=== PATIENT | female | born 1945 | race Caucasian/White ===

== ENCOUNTER 2017-09-17 09:39 | Outpatient (CLI) | payer MEDICARE | END 2017-09-17 09:40 | disposition home or self-care (01) | LOC: BICMAMMO 09:39 | PROVIDERS: ATTEND Internal Medicine | DX: Z78.0 Asymptomatic menopausal state (principal); M85.80 Other specified disorders of bone density and structure, unspecified site | CPT/HCPCS: 77080 ==

== ENCOUNTER 2017-09-22 07:53 | Outpatient (CLI) | payer MEDICARE ==
[2017-09-22] MEDS ORDERED: Gadobenate Dimeglumine 529 MG/1 ML (20ML VIAL) ONE (15:11)
== END 2017-09-22 07:54 | disposition home or self-care (01) ==
LOC: BICMRI 07:53
PROVIDERS: ATTEND Internal Medicine Gastroenterology
DX: Z12.11 Encounter for screening for malignant neoplasm of colon (principal); K86.89 Other specified diseases of pancreas; K76.89 Other specified diseases of liver; Z90.5 Acquired absence of kidney; K86.2 Cyst of pancreas
CPT/HCPCS: 74183; 82565; A9579

== ENCOUNTER 2017-12-18 09:49 | Outpatient (CLI) | payer MEDICARE | END 2017-12-18 09:50 | disposition home or self-care (01) | LOC: BICMAMMO 09:49 | PROVIDERS: ATTEND Internal Medicine | DX: Z12.31 Encounter for screening mammogram for malignant neoplasm of breast (principal) | CPT/HCPCS: 77063; 77066; 77067; G0279 ==

== ENCOUNTER 2019-02-16 14:21 | Outpatient (CLI) | payer MEDICARE, OTHER ==
--- NOTE | 2019-02-16 15:49 | MRI ---
Exam: Brain MRI without contrast HISTORY: Headache. Bilateral arm numbness. COMPARISON: None FINDINGS: Calvarial marrow signal intensity: Appropriate T1 signal Gradient echo sequence: No hemorrhage Brain parenchyma: No mass, mass effect or midline shift. Brain volume, age-appropriate. Cortical greco-white matter differentiation: Preserved Restricted diffusion: Central arterial flow voids are maintained. Absent restricted diffusion White matter signal intensities:Scattered T2 and FLAIR white matter hyperintensities which are nonspe cific but may be due to chronic small vessel ischemic changes. Sinuses: Right frontal sinus opacification. There is mucosal thickening with near complete opacificat ion the right sphenoid sinus. Adequate mastoid air cell aeration IMPRESSION: 1. No acute intracranial process. 2. Right sinus disease. 3. Absent restricted diffusion. No acute infarct
--- NOTE | 2019-02-16 16:16 | MRI ---
MRI CERVICAL SPINE WITHOUT CONTRAST: 02/16/19 INDICATIONS: Neck pain. Comparison made to MRI cervical spine 08/15/13. FINDINGS: Degenerative changes at all levels again noted with loss of disc space. The posterolisthesis at C3-4 is again seen and was present in 2014. Slight anterolisthesis at C4-5 is also again noted and was pre sent previously. The cervical vertebrae maintain normal signal and maintain height. At C2-3, posterior disc bulge and spondylosis efface the anterior subarachnoid space. At C3-4, loss of disc space or posterolisthesis is noted as described above. Posterior disc bulge an d spondylosis is more prominent at this level today and there is increasing central canal stenosis at this level when compared to 2014. Mild cord compression. At C4-5, mild anterolisthesis with posterior disc bulge and spondylosis. This effaces the anterior pereira barachnoid space but does not compress or impinge on the cord. Foramina appear open. At C5-6, slight anterolisthesis, also similar to the prior exam. Posterior disc bulge and spondylosis is similar to the prior study. These changes efface the anterior subarachnoid space but do not impin ge on the cord. Mild foraminal encroachment due to uncinate hypertrophy. At C6-7, posterior disc bulge and spondylosis is similar to the prior study. These changes indent the thecal sac and efface the anterior subarachnoid space. No cord impingement or significant central ca nal stenosis. Evidence of right foraminal stenosis due to facet and uncinate hypertrophy. At C7-T1, disc bulge and spondylosis mildly flatten the thecal sac. Anterior subarachnoid space is pr eserved. Left foraminal encroachment due to uncinate hypertrophy. 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 See description above. POS: OFF
--- NOTE | 2019-02-16 16:31 | MRI ---
MRI OF THE LUMBAR SPINE WITHOUT CONTRAST: 02/16/19 INDICATIONS: Low back pain, headache. Comparison made to MRI lumbar spine dated 07/28/14. FINDINGS: There are postoperative changes noted with pedicle screws at L4-5 and interbody fusion at this level. These postoperative changes were present on the prior exam. Lumbar vertebrae maintain height and alignment. The other disc spaces are preserved. Mild degenerativ e osteophytes are present. At T11-T12, there is an asymmetric disc protrusion paracentrally on the left which indents the anteri or thecal sac on the left and produces mild left foraminal encroachment. There appears to be a focal left paracentral protrusion with slight inferior extension. The protruded disc on the axial images me asures 6 mm AP dimension just inferior to the disc space. T12-L1, no significant abnormality. AT L1-2, mild disc bulge. No central canal or foraminal stenosis. At L2-3, there is a slight posterolisthesis with broad based disc bulge which is more prominent than on the prior study. This flattens the thecal sac. There is facet and ligamentous hypertrophy present . These changes result in mild central canal stenosis. At L3-4, there is focal protrusion centrally and slightly to the right which compresses the anterior thecal sac. This has occurred since the prior study. The focal protrusion measures 5 mm AP dimension in the axial plane. Facet and ligamentous hypertrophy resulting in moderate central canal stenosis. Fusion changes at L4-5. At L5-S1, loss of disc space. Broad based disc bulge is similar to the prior exam. Mild central canal stenosis. There is bilateral foraminal stenosis at this level. IMPRESSION: 1. Focal disc protrusion to the left at T11-T12. 2. Broad based bulge at L2-3 producing mild central canal stenosis as described above. 3. Diffuse bulge and small focal protrusion centrally and to the right at L3-4 as described abov e. 4. Postop changes at L4-5 as described. 5. Disc bulge at L5-S1 is stable from prior exam. There is bilateral foraminal stenosis at this level. POS: OFF
--- NOTE | 2019-02-16 16:41 | RAD ---
CERVICAL SPINE: 02/16/19 HISTORY: Neck pain. FINDINGS/IMPRESSION: Posterolisthesis at C2-3 and C3-4. Anterolisthesis at C4-5 and C5-6. Degenerative disc narrowing at C 5-6 and C6-7 with spurring. There is slight reduction in the anterolisthesis at C4-5 with extension. See MRI cervical spine for further characterization. POS: OFF
== END 2019-02-16 14:22 | disposition home or self-care (01) ==
LOC: MRI 14:21
DX: M54.2 Cervicalgia (principal); M99.4 Connective tissue stenosis of neural canal; R51 Headache; M43.12 Spondylolisthesis, cervical region; M48.02 Spinal stenosis, cervical region; M51.24 Other intervertebral disc displacement, thoracic region; M51.87 Other intervertebral disc disorders, lumbosacral region; M48.07 Spinal stenosis, lumbosacral region; J32.9 Chronic sinusitis, unspecified; Z98.890 Other specified postprocedural states
CPT/HCPCS: 70551; 72050; 72141; 72148

== ENCOUNTER 2019-06-16 13:00 | Outpatient (CLI) | payer MEDICARE, OTHER ==
--- NOTE | 2019-06-16 13:26 | RAD ---
EXAM: Cervical spine radiographs, 3 views PROVIDED CLINICAL HISTORY: Neck pain COMPARISON: 02/16/2019 FINDINGS: Interval placement of bilateral articular pillar screws and associated vertical interconnecting rods with bone augmentation material adjacent to the posterior elements from C3 through C6. No evidence for hardware loosening or migration. There is persistent but less conspicuous anterolisthesis of C4 o n C5 and C5 on C6. Disc space height loss and endplate degenerative change at multiple levels redemonstrated. No prevertebral soft tissue swelling apparent. The visualized lung apices appear frank r. IMPRESSION: Interval postoperative change.
== END 2019-06-16 13:01 | disposition home or self-care (01) ==
LOC: BICRAD 13:00
PROVIDERS: ATTEND Neurological Surgery
DX: M47.812 Spondylosis without myelopathy or radiculopathy, cervical region (principal); Z98.890 Other specified postprocedural states
CPT/HCPCS: 72040

== ENCOUNTER 2019-08-02 09:07 | Outpatient (CLI) | payer MEDICARE, OTHER ==
--- NOTE | 2019-08-02 11:08 | RAD ---
CERVICAL SPINE 3 VIEWS: Date: 08/02/2019 HISTORY: Spondylosis. Neck pain. Prior cervical surgery. COMPARISON: Films of 06/16/2019. FINDINGS: Postoperative changes are again noted. Posterior pedicle screws and rods are again seen at the C3, C4 , C5, and C6 levels. There is mild anterolisthesis at the c4-5 level, stable from the prior exam. The re is anterolisthesis at C5-6, which also appears stable from prior exam. There is loss of disc space at all levels with hypertrophic spurring. The hardware appears unchanged with no evidence of looseni ng. IMPRESSION: Stable postoperative and degenerative changes of cervical spine. POS: [facility]
== END 2019-08-02 09:08 | disposition home or self-care (01) ==
LOC: BICRAD 09:07
PROVIDERS: ATTEND Neurological Surgery
DX: M47.812 Spondylosis without myelopathy or radiculopathy, cervical region (principal); Z98.890 Other specified postprocedural states
CPT/HCPCS: 72040

== ENCOUNTER 2019-11-23 11:18 | Outpatient (CLI) | payer MEDICARE, OTHER ==
--- NOTE | 2019-11-23 11:44 | RAD ---
RADIOGRAPH CERVICAL SPINE 4 VIEWS: DATE: 11/23/2019 HISTORY: 73-year-old female with cervicalgia. COMPARISON: 08/02/2019 FINDINGS: Bilateral posterior element screws with vertical interlocking rods, and laminectomy defects, at C3, C 4, C5, and C6. Vertebral body heights are maintained. No prevertebral soft tissue swelling. Multilevel high-grade bilateral facet DJD throughout all or almost all levels. C1-2: Mild to moderate DJD at bilateral atlantoaxial joints. C2-3: Moderate disc space narrowing. Retrolisthesis of C2 on C3. C3-4: Moderate disc space narrowing. Retrolisthesis of C3 on C4. C4-5: Mild to moderate disc space narrowing. Grade 1 anterolisthesis of C4 on C5. C5-6: Moderate disc space narrowing. Grade 1 anterolisthesis of C5 on C6. C6-7: Severe disc space narrowing. Prominent endplate sclerosis. Moderately large anterior endplate o steophytes protruding into prevertebral space. Smaller endplate osteophytes encroaching upon anterior aspect of spinal canal. No obvious interval change is detected. IMPRESSION: 1) cervical spondylosis with multilevel degenerative disc disease, moderate in severe; and multilevel bilateral severe facet osteoarthrosis. 2) status post laminectomies and posterior element fusion hardware from C3 through C6. 3) level chronic subluxations. 4) no interval change detected.
== END 2019-11-23 11:19 | disposition home or self-care (01) ==
LOC: BICRAD 11:18
PROVIDERS: ATTEND Neurological Surgery
DX: M47.22 Other spondylosis with radiculopathy, cervical region (principal); M50.10 Cervical disc disorder with radiculopathy, unspecified cervical region; Z98.1 Arthrodesis status
CPT/HCPCS: 72040

== ENCOUNTER 2020-05-03 11:04 | Outpatient (CLI) | payer MEDICARE, OTHER ==
--- NOTE | 2020-05-03 11:30 | RAD ---
Exam: 3 views cervical spine COMPARISON: 11/23/2019 FINDINGS: On the open-mouth projection, lateral masses of C1 and C2 articulate appropriately. Intact odontoid p rocess. In the AP projection, there are bilateral transpedicular screws at C3, C5, and C6. There is a solitar y right-sided screw at C4. No perihardware lucency. Stable grade 1 anterolisthesis of C4 upon C5 and C5 upon C6. Stable grade 1 retrolisthesis of C2 upon C3 and C3 upon C4. Stable loss of disc space height, endplate sclerosis and osteophyte formation at C6-C7. Cervical spine vertebral body heights are maintained. No fracture. No significant prevertebral soft t issue swelling. Predental space is normal. There is evidence of posterior decompressive laminectomies at C4, C5, C6 and C7. There is associated bone graft material. IMPRESSION: Essentially stable postsurgical changes/fusion changes. Transcribed Date/Time: 05/03/2020 11:33 AM
== END 2020-05-03 11:05 | disposition home or self-care (01) ==
LOC: BICRAD 11:04
PROVIDERS: ATTEND Neurological Surgery
DX: M47.22 Other spondylosis with radiculopathy, cervical region (principal); Z98.890 Other specified postprocedural states
CPT/HCPCS: 72040

== ENCOUNTER 2020-05-23 11:01 | Outpatient (CLI) | payer MEDICARE, OTHER ==
[2020-05-23] MEDS ORDERED: Iopamidol 370 76% 100 ML VIAL ONE (11:39)
--- NOTE | 2020-05-23 11:40 | CT ---
EXAM: CT ABDOMEN AND PELVIS HISTORY: Worsening constipation COMPARISON: None. Procedure: Multiple contiguous axial images were obtained and a CT of the abdomen and pelvis with IV contrast. C oronal reformats were performed. FINDINGS: Lower Chest: Scarring and atelectasis in the middle lobe and lingula as well as the left lower lobe. Vessels: Normal caliber aorta. Heart: Upper normal heart size, without significant pericardial fluid Abdomen: Portal vein:Patent Gallbladder: Contracted, likely due to a nonfasting state Liver: Subcentimeter hypodensities are too small to characterize but are statistically favored to be cysts. Pancreas: within normal limits. Spleen: within normal limits. Adrenals: within normal limits. Kidneys: Absent left kidney. Appropriate enhancement of the right kidney without evidence of obstruct slime uropathy. Peritoneum: Decreased visceral fat limits evaluation for inflammatory change. No definite free air or free fluid. Bowel: There is oral contrast. Gastric mucosa and small bowel loops have an overall normal appearance . 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 Normal-appearing ileocecal junction. Normal caliber air-filled appendix. There is sc attered fecal material and contrast in the cecum, ascending colon and proximal transverse colon. There does appear to be a caliber change as well as mucosal prominence starting in the mid portion of the transverse colon extending to the descending colon. Mucosal prominence is presumed to be due to inadequate distention with oral contrast. Sigmoid colon and rectum do not demonstrate any obvious abnormality. Overall there is a moderate amount of fecal material predominantly in the right hemicolon. There is evidence of previous bariatric surgical change. Mesentery and Retroperitoneum: No enlarged mesenteric or retroperitoneal lymph nodes. Abdominal Wall: within normal limits. Pelvis: Reproductive Organs: Reproductive organs are unremarkable. Pelvis: No mass, lymphadenopathy, free air or free fluid. Bladder: within normal limits. Bones: No lytic or blastic lesions. Previous lumbar fusion is identified. Vacuum disc phenomenon at t he lumbosacral junction IMPRESSION: No evidence of constipation. There is a moderate amount fecal material in the right hemicolon of unce rtain significance. There is abrupt caliber change in the transverse colon, extending to the left hemicolon. Findings are presumed to be due to inadequate distention. As a conservative measure, colon oscopy can be performed. Transcribed Date/Time: 05/23/2020 12:13 PM
== END 2020-05-23 11:02 | disposition home or self-care (01) ==
LOC: BICCT 11:01
PROVIDERS: ATTEND Internal Medicine Gastroenterology
DX: K86.89 Other specified diseases of pancreas (principal); K21.9 Gastro-esophageal reflux disease without esophagitis; K58.9 Irritable bowel syndrome, unspecified
CPT/HCPCS: 74177; 82565; Q9967

== ENCOUNTER 2021-01-16 10:40 | Outpatient (CLI) | payer MEDICARE, OTHER | END 2021-01-16 10:41 | disposition home or self-care (01) | LOC: BICMAMMO 10:40 | PROVIDERS: ATTEND Internal Medicine | DX: Z12.31 Encounter for screening mammogram for malignant neoplasm of breast (principal) | CPT/HCPCS: 77063; 77067 ==

== ENCOUNTER 2021-08-28 07:07 | Day surgery (SDC) | payer MEDICARE, OTHER ==
[2021-08-27 11:32] VITALS: BMI 26.4
[2021-08-28 07:30] LABS: #Basophils 0.1 thou/uL (0.0-0.2); #Eosinphils 0.4 thou/uL (0.0-0.7)
[2021-08-28 07:42] LABS: #Lymphocytes 2.1 thou/uL (1.20-3.40); #Monocytes 0.6 thou/uL (0.11-0.59); #Neutrophils 2.5 thou/uL (1.40-6.50); %Basophils 1.6 % (0.0-1.0); %Eosinophils 7.4 % (0.0-10.0); %Lymphocytes 36.8 % (21.0-51.0); %Monocytes 10.9 % (0.0-10.0); %Neutrophils 43.3 % (42.0-75.0); Mean Corpuscular HGB CONC 32.4 g/dL (32.0-36.0); Mean Corpuscular Hemoglobin 31.6 pg (27.0-31.0); Mean Corpuscular Volume 97.4 fL (78.0-98.0); Mean Platelet Volume 6.9 fL (7.4-10.4); Platelet Count 307 thou/uL (130-400); RBC Distribution Width 12.6 % (11.5-14.5); Red Blood Cell (RBC) Count 4.12 mill/uL (4.20-5.40); White Blood Cell (WBC) Count 5.7 thou/uL (4.8-10.8)
[2021-08-28 07:50] VITALS: BP 154/79; TEMP 97.8
[2021-08-28 07:57] LABS: INR-International Normal Ratio 0.7; PTT 22.9 sec (22.9-36.1); Prothrombin Time 10.5 sec (12.0-14.7)
== END 2021-08-28 09:35 | disposition home or self-care (01) ==
LOC: RAD 07:07
PROVIDERS: ATTEND Specialist
PROC: B01B1ZZ Fluoroscopy of Spinal Cord using Low Osmolar Contrast (ICD-10-PCS; principal; 2021-08-28)
DX: M48.02 Spinal stenosis, cervical region (principal); M50.31 Other cervical disc degeneration, high cervical region; M47.812 Spondylosis without myelopathy or radiculopathy, cervical region; M51.16 Intervertebral disc disorders with radiculopathy, lumbar region; M51.17 Intervertebral disc disorders with radiculopathy, lumbosacral region; M43.12 Spondylolisthesis, cervical region; M48.03 Spinal stenosis, cervicothoracic region; M51.24 Other intervertebral disc displacement, thoracic region; M48.04 Spinal stenosis, thoracic region; M51.35 Other intervertebral disc degeneration, thoracolumbar region; M47.815 Spondylosis without myelopathy or radiculopathy, thoracolumbar region; M43.16 Spondylolisthesis, lumbar region; M48.061 Spinal stenosis, lumbar region without neurogenic claudication; M47.817 Spondylosis without myelopathy or radiculopathy, lumbosacral region; M48.07 Spinal stenosis, lumbosacral region; I70.0 Atherosclerosis of aorta; M54.81 Occipital neuralgia; M46.1 Sacroiliitis, not elsewhere classified; G25.81 Restless legs syndrome; I10 Essential (primary) hypertension; M15.9 Polyosteoarthritis, unspecified; E78.5 Hyperlipidemia, unspecified; M06.9 Rheumatoid arthritis, unspecified; E89.2 Postprocedural hypoparathyroidism; Z87.891 Personal history of nicotine dependence; Z79.899 Other long term (current) drug therapy; Z88.0 Allergy status to penicillin; Z88.1 Allergy status to other antibiotic agents; Z88.2 Allergy status to sulfonamides; Z88.6 Allergy status to analgesic agent; Z90.5 Acquired absence of kidney; Z98.1 Arthrodesis status
CPT/HCPCS: 62305; 72126; 72132; 85025; 85610; 85730

== ENCOUNTER 2022-01-08 10:47 | Outpatient (CLI) | payer MEDICARE, OTHER | END 2022-01-08 10:48 | disposition home or self-care (01) | LOC: BICMAMMO 10:47 | PROVIDERS: ATTEND Internal Medicine Rheumatology | DX: Z13.820 Encounter for screening for osteoporosis (principal); Z78.0 Asymptomatic menopausal state; M25.551 Pain in right hip; M16.11 Unilateral primary osteoarthritis, right hip; M89.9 Disorder of bone, unspecified; M81.0 Age-related osteoporosis without current pathological fracture; M85.851 Other specified disorders of bone density and structure, right thigh; M85.852 Other specified disorders of bone density and structure, left thigh | CPT/HCPCS: 77080 ==

== ENCOUNTER 2022-01-23 09:05 | Outpatient (CLI) | payer MEDICARE, OTHER | END 2022-01-23 09:06 | disposition home or self-care (01) | LOC: BICMAMMO 09:05 | PROVIDERS: ATTEND Internal Medicine | DX: Z12.31 Encounter for screening mammogram for malignant neoplasm of breast (principal) | CPT/HCPCS: 77063; 77067 ==

== ENCOUNTER 2022-02-03 08:34 | Outpatient (CLI) | payer MEDICARE, OTHER | END 2022-02-03 08:35 | disposition home or self-care (01) | LOC: MRI 08:34 | PROVIDERS: ATTEND Orthopaedic Surgery | DX: M25.561 Pain in right knee (principal); S83.231A Complex tear of medial meniscus, current injury, right knee, initial encounter ==

== ENCOUNTER 2023-01-22 14:04 | Outpatient (CLI) | payer MEDICARE, OTHER | END 2023-01-22 14:05 | disposition home or self-care (01) | LOC: BICRAD 14:04 | PROVIDERS: ATTEND Internal Medicine | DX: Z01.818 Encounter for other preprocedural examination (principal) | CPT/HCPCS: 71046 ==

== ENCOUNTER 2023-09-28 14:47 | Outpatient (CLI) | payer MEDICARE, OTHER | END 2023-09-28 14:48 | disposition home or self-care (01) | LOC: BICMAMMO 14:47 | PROVIDERS: ATTEND Internal Medicine Rheumatology | DX: M81.0 Age-related osteoporosis without current pathological fracture (principal) | CPT/HCPCS: 77080 ==

== ENCOUNTER 2024-04-04 14:09 | Outpatient (CLI) | payer MEDICARE, OTHER | END 2024-04-04 14:10 | disposition home or self-care (01) | LOC: BICMAMMO 14:09 | PROVIDERS: ATTEND Internal Medicine | DX: Z12.31 Encounter for screening mammogram for malignant neoplasm of breast (principal) | CPT/HCPCS: 77063; 77067 ==

== ENCOUNTER 2025-01-30 08:18 | Outpatient (CLI) | payer MEDICARE, OTHER | END 2025-01-30 08:19 | disposition home or self-care (01) | LOC: RAD 08:18 | PROVIDERS: ATTEND Internal Medicine Critical Care Medicine | DX: R06.00 Dyspnea, unspecified (principal) | CPT/HCPCS: 71046 ==